=== PATIENT | female | born 1955 | race Caucasian/White ===

== ENCOUNTER 2017-10-08 06:39 | Day surgery (SDC) | payer OTHER ==
[~2017-10-08] VITALS: Ht 167.6 cm; Wt 83.3 kg
[~2017-10-08 06:39] MED LIST: BIOTIN1000 MCG PO; CELEBREX200 MG PO; FLONASE16 G1 BOTH NARES; GLUCOSAMINE DA1 EACH PO; JUICE PLUS PO; MIMVEY 1-0.5 M1 EACH PO; MOBIC7.5 MG PO; PRILOSEC20 MG PO; VITAMIN B-6100 MG PO; VITAMIN B12-FO1 EACH PO; VITAMIN D31000 UNIT PO
[2017-10-08 07:45] VITALS: BP 115/75
[2017-10-08 13:25] VITALS: BP 101/55
[2017-10-08 14:34] VITALS: BP 97/53
[2017-10-08 16:30] VITALS: BP 105/55
[2017-10-08 18:34] VITALS: BP 102/55
== END 2017-10-08 18:55 | disposition home or self-care (01) ==
LOC: SDC 06:39
PROC: 0SRC069 Replacement of Right Knee Joint with Oxidized Zirconium on Polyethylene Synthetic Substitute, Cemented, Open Approach (ICD-10-PCS; principal; 2017-10-08)
DX: M17.11 Unilateral primary osteoarthritis, right knee (principal); K21.9 Gastro-esophageal reflux disease without esophagitis; E03.9 Hypothyroidism, unspecified; Z79.01 Long term (current) use of anticoagulants
CPT/HCPCS: C1713; G8978 GP CJ; G8979 GP CH; G8980 CJ; J0131; J0690; J1170; J1885; J2250; J2405; J7050